=== PATIENT | female | born 2005 | race African-American/Black ===

== ENCOUNTER 2025-05-25 20:27 | Emergency (ER) | payer SELFPAY ==
[~2025-05-25] VITALS: Ht 172.7 cm; Wt 93.4 kg
[2025-05-25] MEDS ORDERED: FAMOTIDINE (20 MG) 20 MG TABLET ONE (21:17)
[2025-05-25] MEDS: FAMOTIDINE (20 MG) 20 MG TABLET PO ONE (21:19)
[2025-05-25 23:03] VITALS: BP 135/87; TEMP 98; O2SAT 99
== END 2025-05-25 23:13 | disposition home or self-care (01) ==
LOC: EDSEX 20:32 → ER 20:32
DX: R11.0 Nausea (principal); T78.1XXA Other adverse food reactions, not elsewhere classified, initial encounter; J45.909 Unspecified asthma, uncomplicated; L50.9 Urticaria, unspecified; Z91.010 Allergy to peanuts; Z20.822 Contact with and (suspected) exposure to COVID-19; X58.XXXA Exposure to other specified factors, initial encounter
CPT/HCPCS: 99284; 87426; 87804 ×2; Q0163; J7512 ×2